=== PATIENT | female | born 1940 | race Caucasian/White ===

== ENCOUNTER → 2020-02-26 | Outpatient (CLI) | payer MEDICARE, BC ==
[~2020-02-26] MED LIST: LEVE500T53 PO; METH2.5T PO
== END | disposition home or self-care (01) ==
LOC: CFH 12:37
PROVIDERS: ATTEND Physician Assistant Surgical
DX: I62.03 Nontraumatic chronic subdural hemorrhage (principal); R22.0 Localized swelling, mass and lump, head
CPT/HCPCS: 70450